=== PATIENT | male | born 1960 | race Caucasian/White ===

== ENCOUNTER 2016-04-10 06:39 | Emergency (ER) | payer BC ==
[2016-04-10] MEDS ORDERED: ONDANSETRON HCL IV 4 MG/2 ML VIAL IM ONE (06:55)
[2016-04-10] MEDS ORDERED: 0.9 % SODIUM CHLORIDE 1,000 ML BAG IV ONE (06:56)
[2016-04-10] MEDS ORDERED: MORPHINE SULFATE 5 MG/ML PFS IVP ONE ×2 (06:59→08:57)
--- NOTE | 2016-04-10 07:00 | Emergency Department Record ---
History of Present Illness - General Chief Complaint: Abdominal Pain Stated Complaint: KIDNEY STONE Time Seen by Provider: 04/10/16 06:53 Source: Patient, Family Mode of Arrival: Ambulatory Limitations: No limitations - History of Present Illness Initial Comments: 55 yo male presents with left flank pain that started about one hour ago. No fevers. He does have a history of prior renal stones. The last stone was several years ago. He has had lithotripsy in the past. No PCP. He has associated nausea. The pain radiates from the left flank to the lower abdomen. No dysuria. MD Complaint: Abdominal pain, Flank pain Onset/Timin -: Minutes(s) Location: L Flank Radiation: None Migration to: No migration Quality: Aching, Sharp Consistency: Constant Improves With: Nothing Worsens With: Nothing Associated Symptoms: Nausea, Vomiting - Related Data Previous Rx's Medication Instructions Recorded Hydrocodone/Acetaminophen [[place] 0.5 - 1 tab PO TID PRN #15 tab 04/10/16 5mg/325mg] Ondansetron [Zofran Odt] 4 mg PO Q8H #15 tab.rapdis 04/10/16 Tamsulosin HCl [Flomax] 0.4 mg PO DAILY #14 cap.er.24h 04/10/16 Allergies Allergy/AdvReac Type Severity Reaction Status Date / Time No Known Allergies Allergy none Verified 04/10/16 06:46 Travel Screening - Travel/Exposure Within Last 30 Days Have you traveled within the last 30 days?: No - Travel/Exposure Within Last Year Have you traveled outside the [place] in the last year?: No - Additonal Travel Details Have you been exposed to anyone with a communicable illness?: No - Travel Symptoms Symptom Screening: None Review of Systems Constitutional: Denies: Chills, Fever, Malaise, Weakness Eyes: Denies: Eye discharge ENT: Denies: Congestion, Throat pain Respiratory: Denies: Cough, Dyspnea Cardiovascular: Denies: Chest pain, Palpitations, Syncope Endocrine: Denies: Fatigue Gastrointestinal: Reports: As per HPI, Abdominal pain, Nausea. Denies: Diarrhea , Vomiting Genitourinary: Denies: Dysuria, Frequency, Hematuria, Urgency Musculoskeletal: Reports: As per HPI, Back pain. Denies: Arthralgia Skin: Denies: Bruising, Change in color Neurological: Denies: Confusion, Headache Psychiatric: Denies: Anxiety Hematological/Lymphatic: Denies: Blood Clots, Easy bleeding, Easy bruising, Swollen glands Past Medical History - SOCIAL HISTORY Smoking Status: Never smoker Alcohol Use: None Drug Use: None - RESPIRATORY Hx Respiratory Disorders: No - CARDIOVASCULAR Hx Cardio Disorders: Yes Hx Cardiac Cath: Yes (no artery blockages) Hx Irregular Heartbeat: Yes (heart block; asystole;) Hx Pacemaker/Defib: Yes - NEURO Hx Neuro Disorders: Yes - GI Hx GI Disorders: No - Hx Genitourinary Disorders: Yes Hx Kidney Stones: Yes - ENDOCRINE Hx Endocrine Disorders: No - MUSCULOSKELETAL Hx Musculoskeletal Disorders: No - PSYCH Hx Psych Problems: No - HEMATOLOGY/ONCOLOGY Hx Hematology/Oncology Disorders: No Family Medical History Any Significant Family History?: No Hx Diabetes: Grandparents Physical Exam - General General Appearance: Alert, Oriented x3, Cooperative, No acute distress Limitations: No limitations - Head Head exam: Normal inspection - Eye Eye exam: Normal appearance, PERRL. negative: Conjunctival injection - ENT ENT exam: Normal exam Ear exam: Normal external inspection Nasal Exam: Normal inspection Mouth exam: Normal external inspection Teeth exam: Normal inspection Throat exam: Normal inspection - Neck Neck exam: Normal inspection, Full ROM. negative: Tenderness - Respiratory Respiratory exam: Normal lung sounds bilaterally. negative: Respiratory distress - Cardiovascular Cardiovascular Exam: Regular rate, Normal rhythm, Normal heart sounds Peripheral Pulses: 2+: Radial (R), Radial (L) - GI/Abdominal GI/Abdominal exam: Soft. negative: Distended, Rigid, Tenderness - Rectal Rectal exam: Deferred - exam: Deferred - Extremities Extremities exam: Normal inspection, Full ROM, Normal capillary refill. negative: Tenderness - Back Back exam: Reports: Normal inspection, Full ROM. Denies: Muscle spasm, Rash noted, Tenderness - Neurological Neurological exam: Alert, Normal gait, Oriented X3 - Psychiatric Psychiatric exam: Normal affect, Normal mood. negative: Agitated, Anxious - Skin Skin exam: Dry, Intact, Normal color, Warm Course Vital Signs 04/10/16 06:40 Temperature 97.5 F L Pulse Rate 64 Respiratory 16 Rate Blood Pressure 138/85 Pulse Ox 96 - Reevaluation(s) Reevaluation #1: EMR reviewed. Prior CR normal at 0.6 04/10/16 07:01 Reevaluation #2: The labs were reviewed No acute changes of the CBC or CMP UA pending The patient is in CT 04/10/16 07:36 Reevaluation #3: The patients pain and nausea are much improved at this time He has returned from CT. Mid ureteral stone seen on CT will await final report as well. 04/10/16 07:42 CT scan demonstrates a 4mm obstructing stone at the pelvic outlet with hydro Awaiting UA Patient is resting comfortably 04/10/16 08:15 04/10/16 11:54 Reevaluation #4: The patient reports some return of pain and nausea at this time. Awaiting UA. Re-medicated 04/10/16 08:59 Nausea with standing, 6/10 pain, unable to produce a urine yet. 04/10/16 10:38 Reevaluation #5: The patient continues to have pain and dry heaves. 04/10/16 11:42 The UA is negative for infection 04/10/16 11:49 04/10/16 12:00 - Consultations Consultation #1: 11:55 AM [facility] at [facility] contacted for on-call urology (Shanti) 12:25 PM [facility] called back. I was informed Dr Moser does not take calls from non [facility] hospitals. The patient can be sent to the ED for a urology consult if indicated. Given he is refractory to nausea and pain I SW Dr Melendez of the ED. He accepts the patient for transfer ED to ED. Consultation #2: 12:55pm the patient voided again. His nausea and pain have suddenly greatly improved. He has been up walking and feels like the stone possibly has passed. He requests DC home at this time. He will be provided his CD in the event the pain returns. [facility] Dianne DUNBAR was notified of the cancelled transfer at this time. Medical Decision Making - Lab Data Result diagrams: 04/10/16 06:50 04/10/16 06:50 Disposition Disposition: Discharge Clinical Impression: Renal calculi, Ureteral colic Disposition: Home, Self-Care Transfer To: [facility] Reason For Transfer: urology consultation Accepting Physician: Al (ED) Time Discussed w/Accepting Physician: 12:28 Condition: (2) Stable Instructions: Renal Colic (ED) Additional Instructions: Go directly to [facility] ER if the pain and nausea returns Call your doctor and urologist Tuesday for close follow up Prescriptions: Tamsulosin HCl [Flomax] 0.4 mg PO DAILY #14 cap.er.24h Hydrocodone/Acetaminophen [[place] 5mg/325mg] 0.5 - 1 tab PO TID PRN #15 tab PRN Reason: Pain - General Ondansetron [Zofran Odt] 4 mg PO Q8H #15 tab.rapdis Forms: Patient Portal Access Time of Disposition: 12:28
[2016-04-10 07:04] LABS: BASO % 0.2 % (0-6); EOS % 1.3 % (0-6); GRAN % 61.1 % (47-80); HEMATOCRIT 44.6 % (42.0-52.0); HEMOGLOBIN 15.6 gm/dl (14.0-18.0); LYMPH % 27.3 % (16-45); MEAN CELL VOLUME 86.4 fl (81-97); MEAN CORPUSCULAR HEMOGLOBIN 30.2 pg (27-33); MEAN PLATELET VOLUME 11.2 fl (7.4-10.4); MONO % 10.1 % (0-9); PLATELET COUNT 191 K/uL (130-400); RED BLOOD COUNT 5.16 M/uL (4.40-5.70); RED CELL DISTRIBUTION WIDTH 12.6 % (11.5-14.5); WHITE BLOOD COUNT W/O DIFF 9.8 K/uL (4.2-12.2)
[2016-04-10] MEDS ORDERED: PROMETHAZINE HCL 25 MG/ML VIAL IVP ONE ×2 (07:10→11:41)
[2016-04-10 07:17] LABS: ALBUMIN 4.6 gm/dL (3.5-5.0); ALKALINE PHOSPHATASE 123 U/L (38-126); ALT/SGPT 66 U/L (21-72); ANION GAP 11.8 (7-16); AST/SGOT 30 U/L (17-59); BILIRUBIN,TOTAL 0.58 mg/dL (0.2-1.3); BLOOD UREA NITROGEN 17 mg/dL (9-20); CARBON DIOXIDE 28.2 mmol/L (22-30); CREATININE 0.7 mg/dL (0.66-1.25); EST GLOMERULAR FILTRATION RATE > 60 ml/min; GLUCOSE,RANDOM 202 mg/dL (70-110); TOTAL PROTEIN 7.3 gm/dL (6.3-8.2)
[2016-04-10] MEDS ORDERED: TAMSULOSIN HCL 0.4 MG CAP.ER.24H PO ONE (07:35)
[2016-04-10] MEDS ORDERED: KETOROLAC 30 MG/ML VIAL IVP ONE ×2 (07:35→08:57)
[2016-04-10] MEDS ORDERED: ONDANSETRON HCL IV 4 MG/2 ML VIAL IVP ONE (08:57)
[2016-04-10 11:45] LABS: URINE APPEARANCE CLEAR; URINE BILIRUBIN NEGATIVE (NEGATIVE); URINE BLOOD SMALL (NEGATIVE); URINE COLOR YELLOW; URINE KETONE TRACE (NEGATIVE); URINE LEUKOCYTE ESTERASE NEGATIVE (NEGATIVE); URINE NITRITE NEGATIVE (NEGATIVE); URINE PROTEIN NEGATIVE (NEGATIVE); URINE UROBILINOGEN 0.2 E.U./dL (0.20 - 1.00)
[2016-04-10 11:49] LABS: URINE EPITHELIAL CELLS NONE SEEN (FEW); URINE HYALINE CAST 0 - 5 /lpf; URINE MUCUS 1+; URINE WBC 0 - 2 (0-2/hpf)
== END 2016-04-10 13:05 | disposition home or self-care (01) ==
LOC: ER 06:39
DX: N13.2 Hydronephrosis with renal and ureteral calculous obstruction (principal); R11.2 Nausea with vomiting, unspecified; Z87.442 Personal history of urinary calculi
CPT/HCPCS: 99284 ×2; 96376; 96374; 96372; 96375; 96361; 85025; 80076; 80048; 81001; 74176; J1885; J2405; J2270; J2550; J7030